=== PATIENT | female | born 1975 | race Caucasian/White ===

== ENCOUNTER 2016-08-22 11:58 | Emergency (ER) | payer MEDICAID ==
[~2016-08-22] VITALS: Ht 160 cm; Wt 79.5 kg
[2016-08-22 11:58] VITALS: TEMP 98.2
[~2016-08-22 11:58] MED LIST: AMOXICILLIN 50500 MG PO; ESCITALOPRAM; FLEXERIL10 MG PO; LOMOTIL 0.025 M1 TAB PO; LORTAB 5/500 501 TAB PO; METRONIDAZOLE500 MG PO; NO HOME MEDICATIONS; NORCO 325 MG-51 TAB PO; PEN-VEE K500 MG PO; TRAMADOL; XANAX .25M0.25 MG/TA PO
[2016-08-22] MEDS ORDERED: ASPIRIN E.C. 8181 MG PO (12:04)
[2016-08-22] MEDS ORDERED: PRENATAL FORMU1 EAC3 PO (12:04)
[2016-08-22 12:52] LABS: INFLUENZA B NEGATIVE
[2016-08-22 13:42] VITALS: BP 123/84; PULSE 94
== END 2016-08-22 13:51 | disposition home or self-care (01) ==
LOC: COL.ER 11:58
PROVIDERS: Nurse Practitioner
DX: J06.9 Acute upper respiratory infection, unspecified (principal); F17.210 Nicotine dependence, cigarettes, uncomplicated

== ENCOUNTER 2017-01-08 12:55 | Emergency (ER) | payer MEDICAID ==
[2005-04-27 03:44] VITALS: BP 131/69
[~2017-01-08] VITALS: Ht 160 cm; Wt 67.7 kg
[~2017-01-08 12:55] MED LIST changes: +ASPIRIN E.C. 8181 MG PO; +PRENATAL FORMU1 EAC3 PO
[2017-01-08 12:57] VITALS: TEMP 98.1
[2017-01-08] MEDS ORDERED: LEXAPRO 10MG10 MG PO (13:21)
[2017-01-08 13:35] LABS: PH 6 (5-8); URINE APPEARANCE Hazy; URINE BACTERIA Rare /hpf; URINE BILIRUBIN Negative (NEGATIVE); URINE BLOOD Negative (NEGATIVE); URINE COLOR Yellow; URINE GLUCOSE Negative (NEGATIVE); URINE KETONE Trace (NEGATIVE); URINE WBC >50 /hpf
[2017-01-08] MEDS ORDERED: MACROBID 1100 MG/CAP PO (13:44)
[2017-01-08] MEDS ORDERED: NORCO 325 MG-51 TAB PO (13:44)
[2017-01-08] MEDS ORDERED: PYRIDIUM200 M1 PO (13:44)
[2017-01-08 14:10] VITALS: BP 156/89; PULSE 69
== END 2017-01-08 14:10 | disposition home or self-care (01) ==
LOC: COL.ER 12:55
PROVIDERS: Nurse Practitioner
DX: N39.0 Urinary tract infection, site not specified (principal); F17.210 Nicotine dependence, cigarettes, uncomplicated; Z98.51 Tubal ligation status; Z90.49 Acquired absence of other specified parts of digestive tract; Z98.890 Other specified postprocedural states
CPT/HCPCS: J0696

== ENCOUNTER 2017-07-11 09:39 | Outpatient (RCR) | payer OTHER ==
[~2017-07-11 09:39] MED LIST changes: +LEXAPRO 10MG10 MG PO; +MACROBID 1100 MG/CAP PO; +PYRIDIUM200 M1 PO
== END 2017-08-04 11:22 | disposition home or self-care (01) ==
LOC: WSOT 09:39
DX: Z02.71 Encounter for disability determination (principal)

== ENCOUNTER 2019-01-08 12:43 | Emergency (ER) | payer MEDICAID ==
[2005-04-27 03:44] VITALS: BP 131/69
[~2019-01-08] VITALS: Ht 157.5 cm; Wt 61.4 kg
[2019-01-08 12:52] VITALS: BP 129/61
[2019-01-08] MEDS ORDERED: DOXYCYCLINE HY100 MG PO (14:04)
[2019-01-08 14:20] VITALS: PULSE 76; TEMP 97.6
== END 2019-01-08 14:20 | disposition home or self-care (01) ==
LOC: COL.ER 12:43
DX: L02.01 Cutaneous abscess of face (principal); F41.9 Anxiety disorder, unspecified; F32.9 Major depressive disorder, single episode, unspecified; F17.210 Nicotine dependence, cigarettes, uncomplicated; Z98.51 Tubal ligation status; W57.XXXA Bitten or stung by nonvenomous insect and other nonvenomous arthropods, initial encounter

== ENCOUNTER → 2020-03-03 | Outpatient (CLI) | payer MEDICAID ==
[~2020-03-03] MED LIST changes: +DOXYCYCLINE HY100 MG PO
== END ==
LOC: COL.RAD 10:16
DX: M51.36 Other intervertebral disc degeneration, lumbar region (principal); M48.061 Spinal stenosis, lumbar region without neurogenic claudication; M47.816 Spondylosis without myelopathy or radiculopathy, lumbar region

== ENCOUNTER → 2020-04-01 | Outpatient (CLI) | payer MEDICAID | LOC: MHCPAIN 12:08 | DX: M47.817 Spondylosis without myelopathy or radiculopathy, lumbosacral region (principal); M54.5 Low back pain; M53.3 Sacrococcygeal disorders, not elsewhere classified; G89.29 Other chronic pain | CPT/HCPCS: G0463 ==